=== PATIENT | male | born 1995 | race Caucasian/White ===

== ENCOUNTER 2019-02-25 16:24 | Emergency (ER) | payer OTHER ==
[2019-02-25 16:35] VITALS: BP 115/53; PULSE 79; RESP 18; TEMP 98.3
[2019-02-25] MEDS ORDERED: PROPARACAINE 0.5% OPHTH DROPS 15 ML BTL LEFT EYE STA (17:09)
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
--- NOTE | 2019-02-25 18:59 | CT ---
EXAMINATION TYPE: CT orbits wo con DATE OF EXAM: 02/25/2019 COMPARISON: HISTORY: Left eye injury CT DLP: 275 mGycm Automated exposure control for dose reduction was used. FINDINGS: There is preseptal soft tissue swelling over the ipsilateral left orbit. The remainder of the left or bit is negative. The contralateral right orbit is unremarkable. There is no orbital or facial skeleton fracture or malalignment. Soft tissue density noted within the right maxillary sinus and left sphenoid sinus, consistent with i nflammatory change. Remainder the visualized paranasal sinuses, middle ear cavities, mastoid sinus ai r cells are unremarkable. No incidental findings. IMPRESSION: PRESEPTAL SOFT TISSUE SWELLING OVER THE LEFT ORBIT. NO OTHER FINDINGS.
== END 2019-02-25 20:36 | disposition home or self-care (01) ==
LOC: EC 16:24
DX: H57.12 Ocular pain, left eye (principal); H57.89 Other specified disorders of eye and adnexa; H53.149 Visual discomfort, unspecified; F17.200 Nicotine dependence, unspecified, uncomplicated
CPT/HCPCS: 70480; 99283